=== PATIENT | female | born 1945 | race Caucasian/White ===

== ENCOUNTER 2016-10-24 14:24 | Emergency (ER) | payer OTHER, MEDICARE ==
[2016-10-24] MEDS ORDERED: IPRATROPIUM/ALBUTEROL 3 ML DEYVIAL IH ONE (14:53)
--- NOTE | 2016-10-24 14:55 | EDPHY ---
H & P Stated Complaint: HX ASTHMA/SENT FROM FOR TRANSIENT HYPOXIA Time Seen by Provider: 10/24/16 14:46 HPI/ROS: CHIEF COMPLAINT: Dyspnea HISTORY OF PRESENT ILLNESS: The patient presents to the ED with mild hypoxemia in the setting of an upper respiratory infection. She has a history of asthma. She has developed some nasal congestion and fatigue. She was seen at her primary care provider's office today and noted to be mildly hypoxemic consent to the ED for further evaluation. She has no complaints of acute chest pain, asymmetric calf pain or swelling, fever or productive cough. She denies any current flu-like symptoms. She did take an albuterol prior to arrival. The patient is on Symbicort on a daily basis. REVIEW OF SYSTEMS: A comprehensive 10 point review of systems is otherwise negative aside from elements mentioned in the history of present illness. Source: Patient - Personal History Current Tetanus/Diphtheria Vaccine: Yes - Medical/Surgical History Hx Asthma: Yes Hx Chronic Respiratory Disease: No Hx Diabetes: No Hx Cardiac Disease: No Hx Renal Disease: No Hx Cirrhosis: No Hx Alcoholism: No Hx HIV/AIDS: No Hx Splenectomy or Spleen Trauma: No Other PMH: ASTHMA/REFLUX - Social History Smoking Status: Never smoked - Physical Exam Exam: General Appearance: Alert, no distress Eyes: Pupils equal and round no pallor or injection ENT, Mouth: Mucous membranes moist Respiratory: Scant expiratory wheezing Cardiovascular: Regular rate and rhythm Gastrointestinal: Abdomen is soft and nontender, no masses, bowel sounds normal Neurological: A&O, normal motor function, normal sensory exam, normal cranial nerves Skin: Warm and dry, no rashes Musculoskeletal: Neck is supple nontender Extremities: symmetrical, full range of motion Constitutional: Initial Vital Signs Temperature (C) 36.9 C 10/24/16 14:33 Heart Rate 87 10/24/16 14:33 Respiratory Rate 16 10/24/16 14:33 Blood Pressure 146/71 H 10/24/16 14:33 O2 Sat (%) 95 10/24/16 14:33 O2 Delivery Mode Room Air O2 (L/minute) 2 Allergies/Adverse Reactions: seasonal Allergy (Uncoded 10/24/16 14:30) Home Medications: Medication Instructions Recorded Albuterol 5 mg/ml INH 10/24/16 Cally Allergy 10/24/16 Aspirin 81mg (*) 10/24/16 Feosol 10/24/16 GABAPENTIN 10/24/16 Hydrochlorothiazide 10/24/16 Lipitor 10/24/16 Oseltamivir Phosphate [Tamiflu] 75 mg PO BID #10 cap 10/24/16 PRILOSEC 10/24/16 Pramipexole Di-HCl 10/24/16 Retaine Cmc 10/24/16 Symbicort 80-4.5 Mcg Inhaler 10/24/16 predniSONE [prednisone 20mg (RX)] 3 tab PO DAILY #15 tab 10/24/16 predniSONE [prednisone 20mg (RX)] 3 tab PO DAILY #15 tab 10/24/16 Medical Decision Making ED Course/Re-evaluation: The patient is well-appearing with mild hypoxemia in the setting of history of reactive airway disease. The patient did receive a DuoNeb treatment in the ED. - Data Points Medications Given: Discontinued Medications Albuterol/Ipratropium (Duoneb) 3 ml IH EDNOW ONE Stop: 10/24/16 14:54 Last Admin: 10/24/16 14:57 Dose: 3 ml Departure - Departure Disposition: Home, Routine, Self-Care Clinical Impression: Bronchitis Condition: Good Instructions: Acute Bronchitis (ED) Additional Instructions: 1. Please use your albuterol inhaler up to every 2 hours as needed. 2. Please return to the ED for any worsening respiratory symptoms, fever or other concerns. 3. There is no evidence of a obvious pneumonia on your chest x-ray today. 4. Please take Tamiflu as directed for the next 5 days for possible influenza infection 5. Please use Maalox and Zantac for further control of your reflux symptoms. Both of these are available [id number]. 6. Prednisone as directed for mild asthma exacerbation. Referrals: Kellie Holcomb MD [Primary Care Provider] - As per Instructions Prescriptions: Oseltamivir Phosphate [Tamiflu] 75 mg PO BID #10 cap predniSONE [prednisone 20mg (RX)] 3 tab PO DAILY #15 tab predniSONE [prednisone 20mg (RX)] 3 tab PO DAILY #15 tab
--- NOTE | 2016-10-24 16:23 | DX ---
PA and Lateral Chest Indication: Dyspnea Comparison: Two-view chest dated May 09, 2016 Findings: Diffuse mild peribronchial thickening and linear opacities, likely reflecting atelectasis, in the lower lung zones have not significantly changed since April 2016. No airspace consolidation o r effusion. The heart size is upper normal. No cephalization. Impression: 1. Mild bronchitis. No pneumonia. 2. Cardiomegaly unchanged. No failure.
[2016-10-24 17:13] VITALS: BP 154/118; PULSE 78; RESP 18; TEMP 97.9; O2SAT 92
== END 2016-10-24 17:13 | disposition home or self-care (01) ==
DX: J40 Bronchitis, not specified as acute or chronic (principal); Z79.82 Long term (current) use of aspirin

== ENCOUNTER → 2017-03-05 | Outpatient (CLI) | payer OTHER, MEDICARE | LOC: BMCIMAGING 12:41 | PROVIDERS: ATTEND Internal Medicine | DX: Z12.31 Encounter for screening mammogram for malignant neoplasm of breast (principal) | CPT/HCPCS: G0202 ==

== ENCOUNTER → 2017-06-30 | Outpatient (CLI) | payer OTHER, MEDICARE | LOC: BMCIMAGING 09:46 | PROVIDERS: ATTEND Orthopaedic Surgery Hand Surgery | DX: M79.645 Pain in left finger(s) (principal) ==

== ENCOUNTER → 2018-04-01 | Outpatient (CLI) | payer OTHER, MEDICARE | LOC: BMCIMAGING 12:20 | PROVIDERS: ATTEND Internal Medicine | DX: Z12.31 Encounter for screening mammogram for malignant neoplasm of breast (principal) ==

== ENCOUNTER → 2018-11-03 | Outpatient (CLI) | payer OTHER, MEDICARE | LOC: BMCIMAGING 09:44 | PROVIDERS: ATTEND Internal Medicine | DX: R92.0 Mammographic microcalcification found on diagnostic imaging of breast (principal) ==

== ENCOUNTER → 2018-11-19 | Day surgery (SDC) | payer OTHER, MEDICARE ==
[~2018-11-19] MED LIST: BUPIVACAINE 0.5% 30 ML SDV ONE; LIDOCAINE 1% 300 MG/30 ML SDV ONE; THROMBIN (BOVINE) 5,000 UNIT VIAL TP ONE
== END | disposition home or self-care (01) ==
LOC: FIMAGING 07:17
PROVIDERS: ATTEND Internal Medicine
PROC: 0HBT3ZX Excision of Right Breast, Percutaneous Approach, Diagnostic (ICD-10-PCS; principal; 2018-11-19)
DX: N60.11 Diffuse cystic mastopathy of right breast (principal)

== ENCOUNTER → 2019-01-31 | Outpatient (CLI) | payer OTHER, MEDICARE | LOC: EDSTATUS 08:49 → EMCIMAGING 11:32 | PROVIDERS: ATTEND Nurse Practitioner Family | DX: M25.561 Pain in right knee (principal); M25.861 Other specified joint disorders, right knee | CPT/HCPCS: 73562-PN ==

== ENCOUNTER → 2019-03-19 | Outpatient (CLI) | payer OTHER, MEDICARE | LOC: EMCIMAGING 13:38 ==